=== PATIENT | female | born 1965 | race Two or more races ===

== ENCOUNTER 2020-06-10 12:12 | Outpatient (REF) | payer OTHER, SELFPAY ==
--- NOTE | 2020-06-10 12:19 | ECG_ITS ---
Test Reason : PALPITATIONS Blood Pressure : / mmHG Vent. Rate : 079 BPM Atrial Rate : 079 BPM P-R Int : 178 ms QRS Dur : 090 ms QT Int : 378 ms P-R-T Axes : 044 038 020 degrees QTc Int : 433 ms Normal sinus rhythm Normal ECG No previous ECGs available Referred By: Lizbeth Guardado Electronically Signed By:Harlan Cerna
[2020-06-10 13:17] LABS: MANUAL DIFF FLAG NO
[2020-06-10 13:19] LABS: Basophils Percent Auto 0.6 % (0-2); Eosinophils Absolute Auto 0.3 X10*3/uL (0.0-0.4); Eosinophils Percent Auto 5.2 % (0-4); Hematocrit 39.7 % (37-47); Hemoglobin 13.3 g/dl (12.0-16.0); Imm Gran Abs Auto 0.02 X10*3/uL (0.00-0.03); Imm Gran Pct Auto 0.4 % (0.0-0.4); Lymphocytes Absolute Auto 1.3 X10*3/uL (1.2-4.9); Lymphocytes Percent Auto 24.4 % (20-40); Mean Corpuscular HGB Conc 33.5 g/dl (31.0-35.0); Mean Corpuscular Hemoglobin 32.4 pg (27.0-33.0); Mean Corpuscular Volume 96.6 fL (80-98); Monocytes Absolute Auto 0.7 X10*3/uL (0.1-1.2); Monocytes Percent Auto 13.8 % (2-11); Neutrophils Absolute Auto 2.9 X10*3/uL (2.0-8.3); Neutrophils Percent Auto 55.6 % (45-73); Platelet Count 300 X10*3/uL (160-400); Red Blood Count 4.11 X10*6/uL (4.20-5.50); Red Cell Distribution Width 13.2 % (11.0-16.0); White Blood Count 5.2 X10*3/uL (4.8-10.8)
[2020-06-10 13:46] LABS: Alanine Aminotransferase 52 U/L (0-31); Albumin Level 4.4 g/dL (3.5-5.0); Alkaline Phosphatase 117 U/L (39-117); Anion Gap 14 (12-20); Aspartate Amino Transferase 32 U/L (5-31); Bilirubin Total 0.6 mg/dL (0.0-1.0); Blood Urea Nitrogen 13 mg/dL (9-16); Calcium 8.8 mg/dL (8.4-10.2); Carbon Dioxide 24 mmol/L (22-29); Chloride 105 mmol/L (96-108); Cholesterol 254 mg/dL; Estimated Glomerular Filt Rate > 60; Glucose Fasting 95 mg/dL (60-99); HDL Cholesterol 59 mg/dL; LDL Cholesterol Calculated 160 mg/dl; Potassium 4.4 mmol/L (3.3-5.1); Sodium 139 mmol/L (135-145); Total Protein 7.4 g/dL (6.5-8.0); Triglycerides 177 mg/dL
[2020-06-10 14:09] LABS: TSH reflex Free T4 2.03 uIU/mL (0.32-4.0)
[2020-06-14 13:27] LABS: Vitamin D 25-OH, D2 <4 ng/mL; Vitamin D 25-OH, D3 12 ng/mL; Vitamin D 25-OH, Total 12 ng/mL (30-100)
== END 2020-06-10 12:13 | disposition home or self-care (01) ==
LOC: HO.LAB 12:12
PROVIDERS: PCP Internal Medicine; Visit Provider Internal Medicine
DX: R07.9 Chest pain, unspecified (principal); E66.9 Obesity, unspecified; E78.5 Hyperlipidemia, unspecified; E55.9 Vitamin D deficiency, unspecified
CPT/HCPCS: 36415; 80053; 80061; 82306; 84443; 85025; 93005

== ENCOUNTER 2020-12-08 16:30 | Outpatient (REF) | payer OTHER, SELFPAY | END 2020-12-08 16:31 | disposition home or self-care (01) | LOC: HO.LNP 16:30 | PROVIDERS: Visit Provider Hospitalist | DX: J01.00 Acute maxillary sinusitis, unspecified (principal); Z20.822 Contact with and (suspected) exposure to COVID-19 | CPT/HCPCS: U0003; U0005 ==

== ENCOUNTER 2021-07-06 06:34 | Outpatient (REF) | payer OTHER, SELFPAY ==
[2021-07-06 08:23] LABS: Alanine Aminotransferase 21 U/L (0-31); Albumin Level 3.9 g/dL (3.5-5.0); Alkaline Phosphatase 108 U/L (39-117); Anion Gap 14 (12-20); Aspartate Amino Transferase 17 U/L (5-31); Bilirubin Total 0.2 mg/dL (0.0-1.0); Blood Urea Nitrogen 16 mg/dL (9-16); Calcium 9.1 mg/dL (8.4-10.2); Carbon Dioxide 25 mmol/L (22-29); Chloride 105 mmol/L (96-108); Cholesterol 225 mg/dL; Estimated Glomerular Filt Rate > 60; Glucose Fasting 100 mg/dL (60-99); HDL Cholesterol 54 mg/dL; LDL Cholesterol Calculated 132 mg/dl; Potassium 4.5 mmol/L (3.3-5.1); Sodium 139 mmol/L (135-145); Total Protein 7.1 g/dL (6.5-8.0); Triglycerides 199 mg/dL
[2021-07-10 13:41] LABS: Vitamin D 25-OH, D2 41 ng/mL; Vitamin D 25-OH, D3 6 ng/mL; Vitamin D 25-OH, Total 47 ng/mL (30-100)
== END 2021-07-06 06:35 | disposition home or self-care (01) ==
LOC: HO.LAB 06:34
PROVIDERS: PCP Internal Medicine; Visit Provider Internal Medicine
DX: R07.9 Chest pain, unspecified (principal); E78.5 Hyperlipidemia, unspecified; E55.9 Vitamin D deficiency, unspecified
CPT/HCPCS: 36415; 80053; 80061; 82306

== ENCOUNTER → 2021-07-07 07:19 | Outpatient (REF) | payer OTHER, SELFPAY ==
--- NOTE | 2021-07-07 07:23 | ECG_ITS ---
Test Reason : chest pain Blood Pressure : / mmHG Vent. Rate : 081 BPM Atrial Rate : 081 BPM P-R Int : 180 ms QRS Dur : 086 ms QT Int : 390 ms P-R-T Axes : 036 047 029 degrees QTc Int : 453 ms Normal sinus rhythm Normal ECG When compared with ECG of 10-JUN-2020 12:31, No significant change was found Referred By: Lizbeth Guardado Electronically Signed By:AARON TORRES
== END ==
LOC: HO.CARD 07:19
PROVIDERS: PCP Internal Medicine; Visit Provider Internal Medicine
DX: R07.9 Chest pain, unspecified (principal)
CPT/HCPCS: 93005

== ENCOUNTER 2022-11-10 17:00 | Outpatient (AMB) | payer OTHER, SELFPAY ==
[2022-11-10 17:01] VITALS: BP 126/80; BMI 38.4
--- NOTE | 2022-11-10 17:01 | A.OFFPC_ITS ---
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 Accompanied by: Self / Same As Patient Allergies No Known Allergies Allergy (Verified 11/10/22 17:06) Medication List - Last Reconciled 11/10/22 by Lizbeth Guardado MD fexofenadine-pseudoephedrine 180-240 mg ER (Muna-D 24 Hour) 1 tab PO QAM tobramycin 0.3% 1 drp ophthalmic (eye) Q4H Tobacco use date assessed: 05/14/22 Dental Screening Dental Screen Date: 11/10/22 Did you have a dental visit in the last 12 months?: Yes Did you have a dental problem in the last 6 months where you did not have access to dental care?: No Was dental information given to patient?: Patient has dentist HPI HPI Comments History of Present Illness Details This is a 57-year-old female that complains of dermatitis of the scalp that has been bothering her for few months. I will refer her to Dermatology. [facility] Medical History (Updated 11/10/22 @ 17:15 by Lizbeth Guardado MD) Chest pain Ear discomfort Obesity Physical exam Surgical History History of tubal ligation Status post right foot surgery Family History Father No problems noted. Mother Diabetes Hypertension Sister Brain cancer Sister Colon cancer Sister Colon cancer Social History Housing: Apartment Alcohol intake: current Alcohol intake frequency: a few times a month Alcohol type: hard liquor Patient Tobacco Use Status: Former Tobacco user Tobacco use type: Cigarette e-Cigarette/Vaping Use: Never Used Second Hand Smoke Exposure: No service: No Current occupational status: employed Cognitive needs: No Hearing needs: No Vision needs: No Questionnaire Thrive Questionnaire Date Thrive assessed: 05/14/22 TAWNY-7 AMB Questionnaire TAWNY-7 Date TAWNY - 7 assessed: 05/14/22 Source: Developed by Drs. Mark Garcia, Jessica Graham, Terry Keith and colleagues, with an educational alexx from [employer]. Review of Systems Const All systems reviewed & are unremarkable except as noted in HPI and below Eyes Reports no additional complaints, Denies change in vision and Denies other visual disturbances Card Denies chest pain at rest, Denies chest pain with activity, Denies edema, Denies irregular heart rhythm, Denies claudication, Denies dyspnea, Denies dyspnea on exertion, Denies orthopnea, Denies paroxysmal nocturnal dyspnea and Denies slow heart rate Resp Denies cough, Denies dyspnea and Denies dyspnea on exertion GI Denies abdominal pain, Denies change in bowel habits, Denies excessive flatus, Denies nausea and Denies vomiting Denies urinary incontinence, Denies urinary hesitancy and Denies urinary urgency Musc Denies abnormal gait, Denies atrophy, Denies deformity and Denies limited range of motion Skin/Breast Denies bleeding lesions, Denies changing lesions, Reports lesions and Denies rash Neuro Denies abnormal gait and Denies lack of coordination Physical exam (Primary Care) Vital Signs: Last Vital Signs BP 126/80 11/10/22 17:01 BMI result Body Mass Index 38.4 Tobacco/Smoking Status: Tobacco use Status Tobacco use date assessed 05/14/22 11/10/22 17:07 Patient Tobacco Use Status Former Tobacco user 11/10/22 17:07 Tobacco use type Cigarette 11/10/22 17:07 e-Cigarette/Vaping Use Never Used 11/10/22 17:07 Thrive Assessment: Date of Thrive Assessment Date Thrive assessed 05/14/22 11/10/22 17:07 Eyes General: appearance normal, both eyes and all related structures Eyelids: Yes eyelids normal Conjunctivae: conjunctivae normal Neck Neck: Yes normal visual inspection and Yes supple Resp Effort & Inspection: normal respiratory effort Auscultation: clear to auscultation bilaterally Cardio Jugular venous distension: no JVD Rate: regular rate Rhythm: regular rhythm Heart sounds: S1 normal heart sound present and S2 normal heart sound present Extrem General: Yes full ROM Assessment and Plan Assessment & Plan (1) Seborrheic dermatitis of scalp: Code(s): L21.9 - Seborrheic dermatitis, unspecified Plan: Start selenium shampoo. Orders: Orders Complete Blood Count Auto Diff Today L21.9 - Seborrheic dermatitis, unspecified Comprehensive [place]. Panel Fast Today L21.9 - Seborrheic dermatitis, unspecified Lipid Panel Today E66.01 - Morbid (severe) obesity due to excess calories, E78.5 - Hyperlipidemia, unspecified, Z68.38 - Body mass index [BMI] 38.0-38.9, adult Vitamin D 25-OH Total Today E55.9 - Vitamin D deficiency, unspecified Vitamin B12 and Folate Today E53.8 - Deficiency of other specified B group vitamins Thyroid Stimulating Hormone Today E66.01 - Morbid (severe) obesity due to excess calories, Z68.38 - Body mass index [BMI] 38.0-38.9, adult Referrals Dermatology Referral L21.9 - Seborrheic dermatitis, unspecified Medications: New selenium sulfide 1% (Dandruff Shampoo (selenium sulfide)) lather into wet hair; leave in place for approximately 3 mins ; rinse 5 mL topical 2XW 207 mL 0RF 30 days doxycycline hyclate 100 mg PO BID 10 tabs 0RF 5 days Coding Level of Care Code Est Pt Level 3 (88912) Diagnoses Seborrheic dermatitis of scalp L21.9 Time Spent (min) 17
== END 2022-11-10 17:20 | disposition home or self-care (01) ==
PROVIDERS: PCP Internal Medicine; Visit Provider Internal Medicine
DX: L21.9 Seborrheic dermatitis, unspecified (principal)
CPT/HCPCS: 99213

== ENCOUNTER 2022-11-12 06:51 | Outpatient (REF) | payer OTHER, SELFPAY ==
[2022-11-12 07:03] LABS: MANUAL DIFF FLAG NO
[2022-11-12 08:47] LABS: Basophils Percent Auto 0.6 % (0-2); Eosinophils Absolute Auto 0.3 X10*3/uL (0.0-0.4); Eosinophils Percent Auto 3.7 % (0-4); Hematocrit 40.6 % (37.0-47.0); Hemoglobin 13.3 g/dl (12.0-16.0); Imm Gran Abs Auto 0.02 X10*3/uL (0.00-0.03); Imm Gran Pct Auto 0.3 % (0.0-0.4); Lymphocytes Absolute Auto 2.4 X10*3/uL (1.2-4.9); Lymphocytes Percent Auto 35.4 % (20-40); Mean Corpuscular HGB Conc 32.8 g/dl (31.0-35.0); Mean Corpuscular Hemoglobin 32.1 pg (27.0-33.0); Mean Corpuscular Volume 98.1 fL (80.0-98.0); Mean Platelet Volume 9.8 fL (9.4-12.3); Monocytes Absolute Auto 0.5 X10*3/uL (0.1-1.2); Monocytes Percent Auto 7.6 % (2-11); Neutrophils Absolute Auto 3.5 x10*3/uL (2.0-8.3); Neutrophils Percent Auto 52.4 % (45-73); Platelet Count 353 X10*3/uL (160-400); Red Blood Count 4.14 X10*6/uL (4.20-5.50); Red Cell Distribution Width 13.2 % (11.0-16.0); White Blood Count 6.7 X10*3/uL (4.8-10.8)
[2022-11-12 09:25] LABS: Alanine Aminotransferase 21 U/L (0-31); Alkaline Phosphatase 92 U/L (39-117); Anion Gap 11 (12-20); Aspartate Amino Transferase 14 U/L (5-31); Bilirubin Total 0.4 mg/dL (0.0-1.0); Blood Urea Nitrogen 22 mg/dL (9-16); Calcium 9.4 mg/dL (8.4-10.2); Carbon Dioxide 24 mmol/L (22-29); Chloride 106 mmol/L (96-108); Cholesterol 242 mg/dL; Estimated Glomerular Filt Rate > 60; Glucose Fasting 90 mg/dL (60-99); HDL Cholesterol 58 mg/dL; LDL Cholesterol Calculated 148 mg/dl; Potassium 3.9 mmol/L (3.3-5.1); Sodium 137 mmol/L (135-145); Total Protein 7.5 g/dL (6.5-8.0); Triglycerides 180 mg/dL
[2022-11-12 09:46] LABS: Thyroid Stimulating Hormone 5.69 uIU/mL (0.32-4.0); Vitamin D 25-OH Total 18.3 ng/mL (>30)
[2022-11-12 09:51] LABS: Folate 4.4 ng/mL (> or = 4.0); Vitamin B12 379 pg/mL (200-900)
== END 2022-11-12 06:52 | disposition home or self-care (01) ==
LOC: HO.LAB 06:51
PROVIDERS: PCP Internal Medicine; Visit Provider Internal Medicine
DX: E66.01 Morbid (severe) obesity due to excess calories (principal); E78.5 Hyperlipidemia, unspecified; E55.9 Vitamin D deficiency, unspecified; E53.8 Deficiency of other specified B group vitamins; L21.9 Seborrheic dermatitis, unspecified; Z68.38 Body mass index [BMI] 38.0-38.9, adult
CPT/HCPCS: 36415; 80053; 80061; 82306; 82607; 82746; 84443; 85025

== ENCOUNTER 2023-01-12 16:17 | Outpatient (AMB) | payer OTHER, SELFPAY ==
[2023-01-12 16:26] VITALS: BP 124/78; PULSE 75; TEMP 36.3; O2SAT 98; BMI 39.7
--- NOTE | 2023-01-12 16:26 | MHC.OFFWIV ---
Intake Vital Signs 01/12/23 16:26 Height 5 ft 6 in Weight 246 lb BMI 39.7 BP 124/78 Blood Pressure Location Rt brachial Position Sitting Pulse 75 Pulse Source Pulse Oximeter Temp 97.3 F Temp Source Temporal Artery Scan Pulse Oximetry (%) 98 Oxygen Delivery Method Room Air Intake Visit Reasons: EP Sinus infection Intake Note: pt is here for c/o sinus infection Patient Tobacco Use Status: Former Tobacco user Allergies No Known Allergies Allergy (Verified 01/12/23 16:26) Do you need a note to return to daycare/school/sports/work: Yes HPI HPI Comments History of Present Illness Details Patient presents for a sick visit. Reporting symptoms of sinus congestion, sore throat and difficulty swallowing. Low-grade fever. No family member is sick. No recent travel. Patient reports symptoms of malaise and fatigue. [facility] Medical History Chest pain Ear discomfort Obesity Physical exam Surgical History History of tubal ligation Status post right foot surgery Family History Father No problems noted. Mother Diabetes Hypertension Sister Brain cancer Sister Colon cancer Sister Colon cancer Social History Housing: Apartment Alcohol intake: current Alcohol intake frequency: a few times a month Alcohol type: hard liquor Patient Tobacco Use Status: Former Tobacco user Tobacco use type: Cigarette e-Cigarette/Vaping Use: Never Used Second Hand Smoke Exposure: No service: No Current occupational status: employed Cognitive needs: No Hearing needs: No Vision needs: No Physical Exam Vital Signs: Last Vital Signs Temp 97.3 F 01/12/23 16:26 Pulse 75 01/12/23 16:26 BP 124/78 01/12/23 16:26 Pulse Ox 98 01/12/23 16:26 Oxygen Delivery Method Room Air 01/12/23 16:26 BMI result Body Mass Index 39.7 Const General: cooperative and healthy appearing Nutritional Appearance: well nourished Orientation/consciousness: patient oriented x3 Limitations: no limitations HEENT Head: Yes normal to inspection Eyes General: appearance normal, both eyes and all related structures Neck Neck: Yes normal visual inspection Chest Chest palpation & inspection: normal palpation of entire chest wall Resp Effort & Inspection: normal respiratory effort Neuro General: patient oriented x3 Assessment & Plan Assessment & Plan (1) Acute sinusitis: Code(s): J01.90 - Acute sinusitis, unspecified Qualifiers: Sinusitis location: maxillary Recurrence: non-recurrent Qualified Code(s): J01.00 - Acute maxillary sinusitis, unspecified Plan: Antibiotics ordered. Increase fluid intake. Tylenol for aches and pains. If symptoms worsen, follow-up here for a recheck. Medications: New azithromycin take 500 mg today (day 1), then 250 mg for 4 days (days 2-5) PO 6 tabs 0RF Coding Level of Care Code Est Pt Level 3 (50619) Diagnoses Acute non-recurrent maxillary sinusitis J01.00 Sinusitis location: maxillary Recurrence: non-recurrent
== END 2023-01-12 17:00 | disposition home or self-care (01) ==
PROVIDERS: PCP Internal Medicine; Visit Provider Internal Medicine
DX: J01.00 Acute maxillary sinusitis, unspecified (principal)
CPT/HCPCS: 99213

== ENCOUNTER 2023-03-23 16:27 | Outpatient (AMB) | payer OTHER, SELFPAY ==
--- NOTE | 2023-03-23 16:29 | MHC.PC.OV ---
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 Accompanied by: Self / Same As Patient Allergies No Known Allergies Allergy (Verified 03/23/23 16:39) Medication List - Last Reconciled 03/23/23 by Lizbeth Guardado MD cholecalciferol (vitamin D3) 25 mcg PO DAILY 90 days fexofenadine-pseudoephedrine 180-240 mg ER (Muna-D 24 Hour) 1 tab PO QAM Tobacco use date assessed: 05/14/22 Dental Screening Dental Screen Date: 03/23/23 Did you have a dental visit in the last 12 months?: Yes Did you have a dental problem in the last 6 months where you did not have access to dental care?: No Was dental information given to patient?: Patient has dentist HPI HPI Comments History of Present Illness Details This is a 57-year-old female that comes for her physical exam. Pap smear done 2022 was normal. Had mammogram in 2022 at [facility] and was normal. Last colonoscopy was less than 10 years ago at [facility] and he was normal as per patient. No chest pain or shortness of breath. Labs will be repeated. [facility] Medical History (Updated 11/14/22 @ 10:54 by Lizbeth Guardado MD) Physical exam Chest pain Obesity Ear discomfort Surgical History Status post right foot surgery History of tubal ligation Family History (Updated 03/23/23 @ 16:45 by Lizbeth Guardado MD) Father No problems noted. Mother Diabetes Hypertension Throat cancer Sister Brain cancer Sister Colon cancer Sister Colon cancer Social History Housing: Apartment Alcohol intake: current Alcohol intake frequency: a few times a month Alcohol type: hard liquor Patient Tobacco Use Status: Former Tobacco user Tobacco use type: Cigarette e-Cigarette/Vaping Use: Never Used Second Hand Smoke Exposure: No service: No Current occupational status: employed Current occupational exposures/hazards: No Cognitive needs: No Hearing needs: No Vision needs: No Questionnaire PHQ-9 Over the last 2 weeks, how often have you been bothered by any of the following problems? 1. Little interest or pleasure in doing things: not at all 2. Feeling down, depressed, or hopeless: not at all 3. Trouble falling or staying asleep, or sleeping too much: not at all 4. Feeling tired or having little energy: not at all 5. Poor appetite or overeating: not at all 6. Feeling bad about yourself - or that you are a failure or have let yourself or your family down: not at all 7. Trouble concentrating on things, such as reading the newspaper or watching television: not at all 8. Moving or speaking so slowly that other people could have noticed. Or the opposite - being so fidgety or restless that you have been moving around a lot more than usual: not at all 9. Thoughts that you would be better off or of hurting yourself in some way: not at all Total score: 0 Depression Screening Interpretation: Negative Depression Screening Done: Yes 91563 - PHQ-9 Billing: Yes Source: Developed by Drs. Mark Garcia, Jessica Graham, Terry Keith and colleagues, with an educational alexx from [employer]. Thrive Questionnaire Date Thrive assessed: 05/14/22 TAWNY-7 AMB Questionnaire TAWNY-7 Date TAWNY - 7 assessed: 05/14/22 Source: Developed by Drs. Mark Garcia, Terry Walker and colleagues, with an educational alexx from [employer]. Review of Systems Const All systems reviewed & are unremarkable except as noted in HPI and below Eyes Reports no additional complaints, Denies change in vision and Denies other visual disturbances Card Denies chest pain at rest, Denies chest pain with activity, Denies edema, Denies irregular heart rhythm, Denies claudication, Denies dyspnea, Denies dyspnea on exertion, Denies orthopnea, Denies paroxysmal nocturnal dyspnea and Denies slow heart rate Resp Denies cough, Denies dyspnea and Denies dyspnea on exertion GI Denies abdominal pain, Denies change in bowel habits, Denies excessive flatus, Denies nausea and Denies vomiting Denies urinary incontinence, Denies urinary hesitancy and Denies urinary urgency Musc Denies abnormal gait, Denies atrophy, Denies deformity and Denies limited range of motion Skin/Breast Denies bleeding lesions, Denies changing lesions and Denies rash Neuro Denies abnormal gait and Denies lack of coordination Physical exam (Primary Care) Vital Signs: Last Vital Signs BP 130/80 03/23/23 16:30 BMI result Body Mass Index 38.7 Tobacco/Smoking Status: Tobacco use Status Tobacco use date assessed 05/14/22 03/23/23 16:33 Patient Tobacco Use Status Former Tobacco user 03/23/23 16:33 Tobacco use type Cigarette 03/23/23 16:33 e-Cigarette/Vaping Use Never Used 03/23/23 16:33 PHQ-9: PHQ-9 Score PHQ-9: Total score 0 03/23/23 16:37 Depression Screening Interpretation: Negative Thrive Assessment: Date of Thrive Assessment Date Thrive assessed 05/14/22 03/23/23 16:33 Const Orientation/consciousness: patient oriented x3 HENMT Head: Yes normal to inspection, Yes normocephalic and Yes atraumatic Ears: external ears normal Eyes General: appearance normal, both eyes and all related structures Eyelids: Yes eyelids normal Conjunctivae: conjunctivae normal Neck Neck: Yes normal visual inspection and Yes supple Resp Effort & Inspection: normal respiratory effort Auscultation: clear to auscultation bilaterally Cardio Jugular venous distension: no JVD Rate: regular rate Rhythm: regular rhythm Heart sounds: S1 normal heart sound present and S2 normal heart sound present GI Inspection: Yes normal to inspection Palpation (GI): Soft to palpation and nontender Auscultation: normal bowel sounds Skin General skin exam: no rashes or lesions noted Neuro General: patient oriented x3 and no focal motor deficits Extrem General: Yes full ROM Psych Appearance: grossly normal Office Procedures Flu Questionnaire Does the patient have a severe egg allergy?: No Immunizations flu vacc [id number] 6mos up(PF) 60 mcg(15 mcgx4)/0.5 mL IM syringe Performing Provider: Lizbeth Guardado MD [facility] Documented (not given) by: DOMINGO Brooks on 03/23/23 16:34 Reason Not Given: Patient Refused Assessment and Plan Assessment & Plan (1) Physical exam: Code(s): Z00.00 - Encounter for general adult medical examination without abnormal findings Plan: Repeat in a year. Orders: Orders Lipid Panel Today E78.5 - Hyperlipidemia, unspecified Thyroid Stimulating Hormone Today R79.89 - Other specified abnormal findings of blood chemistry Free T4 (Free Thyroxine) Today R79.89 - Other specified abnormal findings of blood chemistry Thyroglobulin Antibodies Today R79.89 - Other specified abnormal findings of blood chemistry Influenza [id number] Immunization Today Z23 - Encounter for immunization Vitamin D 25-OH Total Today E55.9 - Vitamin D deficiency, unspecified Thyroid Peroxidase Antibodies Today R79.89 - Other specified abnormal findings of blood chemistry Comprehensive [place]. Panel Fast Today Z00.00 - Encounter for general adult medical examination without abnormal findings Coding Level of Care Code Est Pt Prev Care 40-64y(00476) Diagnoses Physical exam Z00.00 Time Spent (min) 31
[2023-03-23 16:30] VITALS: BP 130/80; BMI 38.7
== END 2023-03-23 16:51 | disposition home or self-care (01) ==
PROVIDERS: PCP Internal Medicine; Visit Provider Internal Medicine
DX: Z00.00 Encounter for general adult medical examination without abnormal findings (principal)
CPT/HCPCS: 99396

== ENCOUNTER 2023-03-24 06:54 | Outpatient (REF) | payer OTHER, SELFPAY ==
[2023-03-24 08:23] LABS: Alanine Aminotransferase 22 U/L (0-31); Albumin Level 3.9 g/dL (3.5-5.0); Alkaline Phosphatase 106 U/L (39-117); Anion Gap 10 (12-20); Aspartate Amino Transferase 17 U/L (5-31); Bilirubin Total 0.3 mg/dL (0.0-1.0); Blood Urea Nitrogen 17 mg/dL (9-16); Calcium 9.4 mg/dL (8.4-10.2); Carbon Dioxide 27 mmol/L (22-29); Chloride 107 mmol/L (96-108); Cholesterol 241 mg/dL (<200); Estimated Glomerular Filt Rate > 60; Glucose Fasting 112 mg/dL (60-99); HDL Cholesterol 52 mg/dL (>40); LDL Cholesterol Calculated 155 mg/dL (<100); Potassium 4.3 mmol/L (3.3-5.1); Sodium 140 mmol/L (135-145); Total Protein 7.4 g/dL (6.5-8.0); Triglycerides 170 mg/dL (<150)
[2023-03-24 08:43] LABS: Vitamin D 25-OH Total 17.9 ng/mL (>30)
[2023-03-25 11:03] LABS: Thyroglobulin Antibodies <1 IU/mL (< or = 1); Thyroid Peroxidase Antibodies <1 IU/mL (<9)
== END 2023-03-24 06:55 | disposition home or self-care (01) ==
LOC: HO.LAB 06:54
PROVIDERS: PCP Internal Medicine; Visit Provider Internal Medicine
DX: Z00.00 Encounter for general adult medical examination without abnormal findings (principal); E78.5 Hyperlipidemia, unspecified; R79.89 Other specified abnormal findings of blood chemistry; E55.9 Vitamin D deficiency, unspecified
CPT/HCPCS: 36415; 80053; 80061; 82306; 84439; 84443; 86376; 86800

== ENCOUNTER 2023-06-04 12:03 | Outpatient (AMB) | payer OTHER, SELFPAY ==
--- NOTE | 2023-06-04 13:19 | AM.OFFWIN_ITS ---
Intake Vital Signs 06/04/23 13:21 Height 5 ft 6 in Weight 231 lb BMI 37.3 BP 120/70 Blood Pressure Location Lt brachial Position Sitting Pulse 104 H Pulse Source Pulse Oximeter Temp 100.3 F Temp Source Oral Pulse Oximetry (%) 95 Oxygen Delivery Method Room Air Intake Visit Reasons: EST/sinus pressure([phone]) Intake Note: Pt is here today c/o sinus pressure x4days Patient Tobacco Use Status: Former Tobacco user Allergies No Known Allergies Allergy (Verified 06/04/23 13:19) HPI EST/sinus pressure([phone]) HPI Details Patient is a 58-year-old female comes to the walk-in clinic complaining of nasal congestion, cough with chest congestion, and sinus pressure for the last 4 days. She states that she had been sick with cold symptoms for the last few weeks also, and now is also developing chills and fatigue. She denies chest pain, or shortness of breath, nausea vomiting or diarrhea, dizziness or weakness, significant sore throat, anorexia, or other significant associated symptoms. She has not checked recently for COVID with home test. [facility] Medical History Physical exam Chest pain Obesity Ear discomfort Surgical History Status post right foot surgery History of tubal ligation Family History Father No problems noted. Mother Diabetes Hypertension Throat cancer Sister Brain cancer Sister Colon cancer Sister Colon cancer Social History Housing: Apartment Alcohol intake: current Alcohol intake frequency: a few times a month Alcohol type: hard liquor Patient Tobacco Use Status: Former Tobacco user Tobacco use type: Cigarette e-Cigarette/Vaping Use: Never Used Second Hand Smoke Exposure: No service: No Current occupational status: employed Current occupational exposures/hazards: No Cognitive needs: No Hearing needs: No Vision needs: No Review of Systems Const All systems reviewed & are unremarkable except as noted in HPI and below Physical Exam Vital Signs: Last Vital Signs Temp 100.3 F 06/04/23 13:21 Pulse 104 H 02/10/24 13:21 BP 120/70 06/04/23 13:21 Pulse Ox 95 06/04/23 13:21 Oxygen Delivery Method Room Air 06/04/23 13:21 BMI result Body Mass Index 37.3 Const General: cooperative, alert, awake, Physically active, in distress, ill appearing and well groomed; No comfortable, anxious, diaphoretic, intoxicated appearing, poor hygiene or tired appearing Nutritional Appearance: average body habitus Orientation/consciousness: patient oriented x3 Limitations: no limitations HEENT Head: Yes normal to inspection, Yes normocephalic and Yes atraumatic Ears: hearing grossly normal bilaterally, external ears normal, TM's normal bilaterally and EAC's normal General nose exam: Normal external nose present, Abnormal mucous membranes and turbinates present and Nasal discharge present Face and sinus: Yes face symmetric and Yes sinus tenderness Mouth: Normal oral and palatal mucosa present, lip normal and tongue normal Throat: Yes uvula midline, Yes abnormal tonsil (mildly erythematous bilaterally), No peritonsillar mass, Yes posterior oropharynx abnormal, Yes postnasal drainage, No uvular edema and No cobblestoning Eyes General: appearance normal, both eyes and all related structures Neck Neck: Yes normal visual inspection, Yes trachea midline and Yes supple Chest Chest palpation & inspection: normal palpation of entire chest wall Resp Effort & Inspection: normal respiratory effort, able to speak in complete sentences, no audible wheezes, Actively coughing, respiratory effort not decreased, no grunting, not labored, no nasal flaring, no respiratory distress, no retractions, no tracheal deviation, no use of accessory muscles, No prolonged expiratory phase and symmetric chest movement Auscultation: clear to auscultation bilaterally, no crackles, no rales, no rhonchi, no wheezes, lung sounds not diminished and No rub present Cardio Rate: regular rate Rhythm: regular rhythm Skin Other: Good color, warm and dry Neuro General: patient oriented x3 Psych Appearance: grossly normal Mental Status: mental status grossly normal Speech and movement: Normal speech and movement present Affect: normal affect Attitude: cooperative Thought process: Normal thought process present Insight: Good insight present (Psych) Judgement: Good judgement present (Psych) Assessment & Plan Assessment & Plan (1) Sinusitis: Code(s): J32.9 - Chronic sinusitis, unspecified Qualifiers: Chronicity: acute Recurrence: non-recurrent Sinusitis location: frontal Qualified Code(s): J01.10 - Acute frontal sinusitis, unspecified Plan: Apparent viral syndrome, with sinus pressure and congested cough being the most significant symptoms. Due to current fever, which is low-grade but present in the setting of sinus pressure and no recent COVID testing, will check for rapid COVID as well as flu COVID and RSV on PCR. She declines chest x-ray today. I wr ote her for a course of doxycycline which would cover pneumonia, and or sinusitis. She has had upper respiratory infection symptoms a few weeks ago, so it is possible that this started viral and has progressed to an acute bacterial sinusitis. She was advised to follow up if symptoms persist or worsen, or go to the emergency department with worrisome symptoms. Patient understood this and agreed. Orders: Orders SARS-CoV2/FLU/RSV 06/04/23 R05.9 - Cough, unspecified [employer]axNOW Covid-19 Ag 06/04/23 Z20.822 - Contact with and (suspected) exposure to COVID-19 Medications: New doxycycline hyclate 100 mg PO BID 7 days 14 tabs 0RF Coding Level of Care Code Est Pt Level 4 (91824) Diagnoses Acute non-recurrent frontal sinusitis J01.10 Chronicity: acute Recurrence: non-recurrent Sinusitis location: frontal
[2023-06-04 13:21] VITALS: BP 120/70; PULSE 104; TEMP 37.9; O2SAT 95; BMI 37.3
== END 2023-06-04 14:17 | disposition home or self-care (01) ==
PROVIDERS: PCP Internal Medicine; Visit Provider Physician Assistant Medical
DX: J01.10 Acute frontal sinusitis, unspecified (principal)
CPT/HCPCS: 99051; 99214

== ENCOUNTER 2023-06-04 14:17 | Outpatient (REF) | payer OTHER, SELFPAY ==
[2023-06-04 14:50] LABS: Binax Internal Control QC Valid; Binax Now Covid-19 Ag Negative (Negative)
== END 2023-06-04 14:18 | disposition home or self-care (01) ==
LOC: HO.HMGCLDS 14:17
PROVIDERS: PCP Internal Medicine; Visit Provider Physician Assistant Medical
DX: Z20.822 Contact with and (suspected) exposure to COVID-19 (principal)
CPT/HCPCS: 87811

== ENCOUNTER 2023-06-04 14:24 | Outpatient (REF) | payer OTHER, SELFPAY ==
[2023-06-04 15:58] LABS: Influenza A PCR POSITIVE (Negative); Influenza B PCR NEGATIVE (Negative); Resp Syncy Virus RNA Qual PCR NEGATIVE (Negative); SARS COV2 PCR INHOUSE NEGATIVE (Negative)
== END 2023-06-04 14:25 | disposition home or self-care (01) ==
LOC: HO.LAB 14:24
PROVIDERS: Visit Provider Physician Assistant Medical
DX: Z11.52 Encounter for screening for COVID-19 (principal); Z20.822 Contact with and (suspected) exposure to COVID-19; R05.9 Cough, unspecified
CPT/HCPCS: 0241U